=== PATIENT | male | born 1940 | race Hispanic/Latino ===

== ENCOUNTER 2016-06-28 13:15 | Day surgery (SDC) | payer MEDICARE, OTHER ==
[~2016-06-28] VITALS: Ht 182.9 cm; Wt 136.0 kg
[~2016-06-28 13:15] MED LIST: ALLO300T2 PO; AMLO5TAB2 PO; APIX2.5T PO; ATRV10T PO; CHOL100094 PO; Dexamethasone 4 mg/mL Inj IVPUSH PRN; EPHEDrine Sulfate 50 mg/mL Inj IVPUSH PRN; FENO160T PO; HYDROmorphone 1 mg/mL Inj IVPUSH PRN; LISI20TA PO; Lactated Ringer's 1,000 ML IV SCH; Lactated Ringer's 500 ML IV PRN; METO-272 PO; MetoCLOpramide 5 mg/mL 2 mL Inj IVPUSH PRN; OMEP20CA11 PO; OMEP20TA86 PO; Ondansetron 2 mg/mL 2 mL Inj IVPUSH PRN; Phenylephrine 10,000 mCg/mL Inj IVPUSH PRN; TAMS0.4C98 PO; fentaNYL-PF 50 mCg/mL 2 mL Inj IVPUSH PRN
[2016-06-28] MEDS ORDERED: fentaNYL-PF 50 mCg/mL 2 mL Inj ONE (13:16)
[2016-06-28] MEDS ORDERED: Propofol 10,000 mCg/mL 20 mL Inj ONE (13:16)
[2016-06-28 13:36] VITALS: BP 158/76; PULSE 73; RESP 16; O2SAT 97
[2016-06-28] MEDS ORDERED: LISI-567 PO (13:40)
--- NOTE | 2016-06-28 13:41 | PCM.HPANE ---
Patient Data Surgeon Admitting Provider: Attending Provider:Truman Liu MD Primary Care Physician:Ortiz Dorsey MD Other Provider:[facility] Anest[facility] Reason for Visit Bright Red Blood, Melena Ht/WT & BMI Body Mass Index Allergies Coded Allergies: atorvastatin (Verified Allergy, Unknown, 06/28/16) metformin (Verified Allergy, Unknown, 06/28/16) Past Anesthesia History Anesthesia History: Denies:: Abnormal Airway, Anesthesia Reactions, Difficult Intubation, Fam Anesthesia Reaction, Fam Malignant Hypertherm, Malignant Hyperthermia Diabetes History Hx Diabetes?: Yes MRSA MRSA: No Medications Blood Thinner: Coumadin Reported Medications Lisinopril 20 Mg Usaqln64 Mg PO DAILY 30 Days Ref 0 06/28/16 Fenofibrate (Tricor)145 Mg Uin060 Mg PO DAILY 30 Days Ref 0 06/25/16 Omeprazole 20 Mg Capsule.dr20 Mg PO DAILY Ref 0 06/25/16 Metoprolol Succinate ER 50 Mg Tab.er.24h50 Mg PO DAILY Ref 0 06/25/16 Apixaban (Eliquis)2.5 Mg Tablet2.5 Mg PO BID 06/25/16 Amlodipine 5 Mg Tablet5 Mg PO DAILY Ref 0 06/25/16 Allopurinol 300 Mg Tzvbsn311 Mg PO DAILY Ref 0 06/25/16 Cholecalciferol (Vitamin D3) (Vitamin D3)1,000 Unit Capsule1,000 Unit PO 09/03/13 Tamsulosin (Flomax)0.4 Mg Capsule0.4 Mg PO DAILY 30 Days Ref 0 09/03/13 Discontinued Reported Medications Omeprazole 20 Mg Tablet.dr20 Mg PO DAILY 06/25/16 Atorvastatin (Lipitor)10 Mg Tab10 Mg PO DAILY Ref 0 06/25/16 Lisinopril (Prinivil)20 Mg Dfrxin83 Mg PO DAILY 30 Days Ref 0 09/03/13 Hyoscyamine ODT 0.125 Mg Tab.rapdis0.125 Mg PO 09/03/13 Aspirin (Aspir 81)81 Mg Tablet.dr81 Mg PO DAILY Ref 0 09/03/13 Folic Acid 1 Mg Tablet1 Mg PO DAILY 30 Days 09/03/13 Fenofibrate Nanocrystallized (Fenofibrate)145 Mg Acemlx178 Mg PO DAILY 30 Days Ref 0 09/03/13 Glyburide 1.25 Mg Tablet1.5 Mg PO BIDAC 30 Days Ref 0 09/03/13 History History of ENT Problems?: No HEENT History: Positive for:: Hearing Problem Denies:: Abnormal Airway Difficult Intubation Dysphagia Denture Type: None Teeth Condition: Within Normal Limits Hx of Heart Problems?: Yes Cardiovascular History: Positive for:: Chest Pain Hypertension Denies:: AICD Atrial Fibrillation Pacemaker Valvular Heart Disease Hx of Respiratory Problem?: Yes Respiratory History: Positive for:: COPD Cough Denies:: Asthma Hemoptysis Pneumonia Tuberculosis Hx Neurologic Problems?: No Neurological History: Denies:: CVA Hx of GI Problems?: Yes Hx of Problems?: No Hx Musculoskeletal Problems?: No Musculoskeletal History: Denies:: Joint Replacement Hx of Psycho/Social Problems?: No Psycho Social History: Denies:: Anxiety Hx Depression Hx Surgeries?: Yes (COLON RESECTION,RIGHT KNEE REPAIRS,TONSILLECTOMY,) Hx Any Other Health Problems?: Yes Hx Diabetes: Yes Hx Alcohol Use: Yes (OCCAS) Stop/Bang Risk Assessment Category Category 1A: Patient has history of documented sleep apnea, and HAS NOT received any narcotic, sedative or anesthesia administration during this stay. Category 1B: Patient has history of documented sleep apnea, and HAS received any narcotic , sedative or anesthesia administration during this stay Category 2: Patient has SUSPECTED Obstructive Sleep Apnea, and HAS received any narcotic , sedative or anesthesia administration during this stay. Category 3: Patient has SUSPECTED Obstructive Sleep Apnea and HAS NOT received narcotic, sedative or anesthesia administration during this stay. Category 4: Outpatient in Procedural Areas with known sleep apnea or who screen positive for High Risk via the STOP/BANG questionnaire. Exam Exam Vital Signs Vital Signs Date Time Temp Pulse Resp B/P Pulse Ox O2 Delivery O2 Flow Rate FiO2 06/28/16 13:36 36.6 73 16 158/76 97 Room Air General Appearance: Alert, Oriented X3, Cooperative HEENT/AIRWAY: MP 2, Neck Movement (thick, from), Mouth Opening (wnl) Lungs: Clear to Auscultation Heart: Exam Unremarkable Plan Impression Patient chart reviewed, patient interviewed and anesthestic plan with risks, benefits, and alternatives discussed, and informed consent obtained. ASA Physical Status: ASA3 Severe Disease Anesthetic Plan: GA Bene/Risks/Altern/Consents: Yes HP Complete Prior to Induction: Yes Mynor Bridges MD June 28, 2016 13:41
[2016-06-28] MEDS ORDERED: Lactated Ringer's 1,000 ML IV SCH ×2 (14:37→15:13)
[2016-06-28 14:47] VITALS: BP 140/67; PULSE 78; RESP 16; O2SAT 98
[2016-06-28 14:57] VITALS: BP 128/63; PULSE 75; RESP 16; O2SAT 97
[2016-06-28 15:07] VITALS: BP 136/74; PULSE 72; RESP 16; O2SAT 96
--- NOTE | 2016-06-28 15:15 | PCM.ANEP1 ---
Post Anesthesia PACU Phase 1 Assessment Vital Signs Vital Signs Date Time Temp Pulse Resp B/P Pulse Ox O2 Delivery O2 Flow Rate FiO2 06/28/16 15:07 72 16 136/74 96 Room Air 06/28/16 14:57 75 16 128/63 97 Room Air 06/28/16 14:47 78 16 140/67 98 Room Air 06/28/16 13:36 36.6 73 16 158/76 97 Room Air Anesthetic Administered: GA Level of Alertness: Awake, talking ALBA's with Equal Strength: Yes Pain: No Nausea or Vomiting: No CV Function and Hydration: Yes Airway Device: Oxygen Delivery: Room Air Lungs: Normal Air Movement PACU Phase 2 Assessment Complications: No Follow up Care: No Patient Instructions Provided: N/A Mynor Bridges MD June 28, 2016 15:14
--- NOTE | 2016-06-28 21:59 | ENDO ---
[address] [address] ENDOSCOPY PROCEDURE PATIENT: AMARA WILLS : 1940 MR#: [id number] ADMIT: 06/28/2016 JOB ID: [id number] DATE OF SERVICE: 06/28/2016 PRIMARY PROVIDER: Ortiz Dorsey MD PROCEDURE: 1. Esophagogastroduodenoscopy. 2. Colonoscopy with cold forceps polypectomy. INDICATIONS: A 75-year-old male with a personal history of colon cancer and colon polyps status post right hemicolectomy. He has had some symptoms of rectal bleeding and even transient melena. He is off anticoagulation for the moment as endoscopic evaluation is pursued. EQUIPMENT: GIF H 180 J and a PCF H 180 AL. SEDATION: Monitored anesthesia as provided by Dr. Suhail Bridges. COMPLICATIONS: None identified. BOWEL PREPARATION: Fair, adequate exam. PROCEDURE INFORMATION: After the risks and benefits were explained, written and verbal informed consent was obtained. The patient was brought into the endoscopy suite and placed into the left lateral decubitus position. Sedation was achieved as above. The scope was introduced into the mouth through the bite block and advanced to the second portion of the duodenum. The scope was slowly withdrawn to carefully examine the mucosa for any defects or lesions. Retroflexed views were accomplished in the stomach, the stomach was decompressed and the scope removed from the patient who tolerated the procedure well. The patient was then turned around. A digital rectal examination accomplished. Moderate internal hemorrhoids were noted. The scope was introduced into the rectum and advanced to the right hemicolectomy anastomosis. The scope was then slowly withdrawn to carefully examine the mucosa for any defects or lesions. Multiple direct views were made through the dentate line for exclusion of pathology. The colon was decompressed. The scope removed the patient who tolerated the procedure well. FINDINGS: 1. Duodenum: This was normal in appearance from the bulb through to the second portion. 2. Stomach: Minimal gastropathy appreciated throughout. No ulcers. No mass lesions. No outlet obstruction. Retroflexed views of the LES were unremarkable. 3. Esophagus: The squamocolumnar junction correlated with the top of the gastric folds. The GEJ was at about 41 cm from the incisors. No acute erosive changes. No strictures. No mass lesions. 4. Colon: There were a couple of very diminutive polyps removed by way of cold forceps from the transverse and likely descending colon. The right hemicolectomy anastomosis appeared patent and normal without any associated pathology. I did not see any evidence of radiation-induced proctitis at present. There were, however, moderately engorged internal hemorrhoids. ENDOSCOPIC DIAGNOSES: 1. Minimal gastropathy. 2. Otherwise visually unremarkable esophagogastroduodenoscopy. 3. Diminutive colon polyps. 4. Normal right hemicolectomy anastomosis. 5. Internal hemorrhoids. RECOMMENDATIONS: 1. Await histopathology. 2. Repeat colonoscopy in three years. 3. No contraindication identified with respect to anticoagulation. 4. Continue treating reflux with omeprazole as this has been thus far successful. 5. If there are any recurrent bleeding symptoms while on Eliquis in the future, then perhaps a capsule endoscopy would be appropriate.
--- NOTE | 2016-06-30 16:56 | PATH ---
SURGICAL PATHOLOGY Attending Physician:Neelima Solorio CASE STATUS: Signed Out PATIENT NAME: AMARA WILLS PID: [id number] : 1940 DATE COLLECTED:06/28/2016 00:00 SPECIMEN: Colon, Biopsy CLINICAL HISTORY: MELENA POLYP 1. COLON POLYPS X2 FINAL DIAGNOSIS: Colon Polyps, Biopsies: Portion of tubular adenoma x1; negative for high-grade dysplasia. Portion of colorectal mucosa x 1 with no diagnostic abnormality. ICD10: K63.5 GROSS DESCRIPTION: The specimen is received in one formalin filled container labeled with the patient's name, sublabeled "colon polyps" and consists of 2 portions of tissue which aggregate to 0.4 x 0.4 x 0.3 CM. The specimen is entirely submitted in one cassette. 06/29/2016 [facility] ICD-9 CODES: CPT CODES: 1: [address] Hutchison MD [facility] [address], [place] [address] Technical component performed at [facility], [facility] [address], [place], [address]
== END 2016-06-28 23:59 | disposition home or self-care (01) ==
LOC: END 13:15
PROVIDERS: ATTEND Internal Medicine Gastroenterology
DX: K62.5 Hemorrhage of anus and rectum (principal); D12.3 Benign neoplasm of transverse colon; K64.8 Other hemorrhoids; Z86.010 Personal history of colon polyps; K63.89 Other specified diseases of intestine; Z90.49 Acquired absence of other specified parts of digestive tract; K31.9 Disease of stomach and duodenum, unspecified; I48.91 Unspecified atrial fibrillation; E11.9 Type 2 diabetes mellitus without complications; I10 Essential (primary) hypertension; J44.9 Chronic obstructive pulmonary disease, unspecified; Z79.01 Long term (current) use of anticoagulants; Z79.84 Long term (current) use of oral hypoglycemic drugs
CPT/HCPCS: 43235; 45380; 88305; J2250; J3010; J7120